=== PATIENT | male | born 1950 | race Caucasian/White ===

== ENCOUNTER 2019-12-19 13:17 | Outpatient (REF) | payer MEDICARE, OTHER, SELFPAY ==
[2019-12-19 21:57] LABS: Hemoglobin A1C 5.4 % (3.8-5.6)
[2019-12-19 22:02] LABS: ALT 33 U/L (16-63); AST 21 U/L (15-37); Albumin 4.4 g/dL (3.4-5.0); Alkaline Phosphatase 31 U/L (46-116); Anion Gap 10.5 mmol/L (3-11); BUN 21 mg/dL (7-18); Bilirubin, Total 0.6 mg/dL (0.2-1.0); CO2 24.5 mmol/L (21.0-32.0); CREATININE 1.18 mg/dL (0.70-1.30); Calcium 9.2 mg/dL (8.5-10.1); Calculated LDL 60 mg/dL (<100); Chloride 105 mmol/L (98-107); Cholesterol 170 mg/dL (<200); Glucose 114 mg/dL (74-106); HDL Cholesterol 60 mg/dL (40-60); Potassium 3.8 mmol/L (3.5-5.1); Sodium 140 mmol/L (136-145); Total Protein 7.3 g/dL (6.4-8.2); Triglyceride 252 mg/dL (<150)
[2019-12-19 22:10] LABS: Bilirubin, Direct 0.22 mg/dL (0.00-0.20)
[2019-12-20 17:40] LABS: PSA, Screening 1.3 ng/mL (0.0-4.5)
== END 2019-12-19 13:37 ==
LOC: NCHCN 13:17
PROVIDERS: Visit Provider Nurse Practitioner Family
DX: R73.9 Hyperglycemia, unspecified (principal); I10 Essential (primary) hypertension; E78.5 Hyperlipidemia, unspecified; Z12.5 Encounter for screening for malignant neoplasm of prostate
CPT/HCPCS: 80048; 80061; 80076; 84153; 83036

== ENCOUNTER 2020-12-08 15:59 | Outpatient (REF) | payer MEDICARE, OTHER, SELFPAY ==
[2020-12-08 20:16] LABS: Bacteria Few HPF (Negative); C & S Indicated? C&S Done As Ordered; Casts Negative LPF (Negative); Crystals Few Amorphous HPF (Negative); Epithelial Cells Few HPF (Negative); Mucus Trace (Negative); RBC 20-50 HPF (0-2)
== END 2020-12-08 16:00 | disposition home or self-care (01) ==
LOC: NCHCN 15:59
PROVIDERS: Visit Provider Internal Medicine
DX: R31.29 Other microscopic hematuria; Z87.448 Personal history of other diseases of urinary system
CPT/HCPCS: 81015; 87086

== ENCOUNTER 2020-12-23 18:40 | Outpatient (REF) | payer MEDICARE, OTHER, SELFPAY ==
[2020-12-23 21:07] LABS: HGB 11.4 g/dL (13.5-17.5); MCH 32.9 pg (27.0-33.0); MCHC 33.5 % (32.0-36.0); MPV 10.2 fL (8.0-11.0); Platelet Count 181 10^3/uL (130-400); RBC 3.47 10^6/uL (4.36-5.78); RDW 12.1 % (11.8-14.1); RDW-SD 43.7 fL
[2020-12-23 21:28] LABS: ALT 32 U/L (16-63); AST 26 U/L (15-37); Albumin 4.1 g/dL (3.4-5.0); Alkaline Phosphatase 24 U/L (46-116); BUN 28 mg/dL (7-18); Bilirubin, Total 0.3 mg/dL (0.2-1.0); CREATININE 1.5 mg/dL (0.70-1.30); Calcium 9.5 mg/dL (8.5-10.1); Chloride 107 mmol/L (98-107); Glucose 115 mg/dL (74-106); Potassium 4.5 mmol/L (3.5-5.1); Sodium 142 mmol/L (136-145); Total Protein 7.1 g/dL (6.4-8.2)
== END 2020-12-23 18:41 | disposition home or self-care (01) ==
LOC: NCHCN 18:40
PROVIDERS: Visit Provider Physician Assistant
DX: I10 Essential (primary) hypertension (principal); D64.9 Anemia, unspecified
CPT/HCPCS: 80053; 85027

== ENCOUNTER 2021-01-09 09:36 | Outpatient (REF) | payer MEDICARE, OTHER, SELFPAY ==
[2021-01-09 19:15] LABS: Iron 76 ug/dL (65-175); Total Iron Binding Capacity 465 ug/dL (250-450); Transferrin Sat 16 % (20-55)
[2021-01-09 19:18] LABS: ALT 34 U/L (16-63); AST 22 U/L (15-37); Albumin 4.4 g/dL (3.4-5.0); Alkaline Phosphatase 36 U/L (46-116); Anion Gap 10.7 mmol/L (3-11); BUN 21 mg/dL (7-18); Bilirubin, Total 0.4 mg/dL (0.2-1.0); CO2 25.3 mmol/L (21.0-32.0); CREATININE 1.3 mg/dL (0.70-1.30); Chloride 108 mmol/L (98-107); Estimated GFR 54.73 (mL/min/1.73m2); Ferritin 107 ng/mL (26-388); Glucose 115 mg/dL (74-106); Potassium 4.2 mmol/L (3.5-5.1); Sodium 144 mmol/L (136-145); Total Protein 7.3 g/dL (6.4-8.2)
== END 2021-01-09 09:37 | disposition home or self-care (01) ==
LOC: NCHCN 09:36
PROVIDERS: Referring Provider Internal Medicine; Visit Provider Internal Medicine
DX: D64.9 Anemia, unspecified (principal); N18.31 Chronic kidney disease, stage 3a; R31.21 Asymptomatic microscopic hematuria
CPT/HCPCS: 80053; 82728; 83540; 83550

== ENCOUNTER 2022-01-15 15:10 | Outpatient (REF) | payer MEDICARE, OTHER, SELFPAY ==
[2022-01-15 19:38] LABS: ALT 33 U/L (16-63); AST 32 U/L (15-37); Alkaline Phosphatase 36 U/L (46-116); Anion Gap 10.8 mmol/L (3-11); BUN 26 mg/dL (7-18); Bilirubin, Total 0.4 mg/dL (0.2-1.0); CO2 26.2 mmol/L (21.0-32.0); CREATININE 1.6 mg/dL (0.70-1.30); Calcium 9.6 mg/dL (8.5-10.1); Chloride 105 mmol/L (98-107); Estimated GFR 46.06 (mL/min/1.73m2); Glucose 108 mg/dL (74-106); Potassium 4.1 mmol/L (3.5-5.1); Sodium 142 mmol/L (136-145); Total Protein 7.6 g/dL (6.4-8.2)
[2022-01-15 20:09] LABS: Hemoglobin A1C 5.4 % (<5.7)
[2022-01-18 11:00] LABS: PSA, Screening 1.6 ng/mL (<=6.5)
== END 2022-01-15 15:11 | disposition home or self-care (01) ==
LOC: NCHCN 15:10
PROVIDERS: Visit Provider Physician Assistant
DX: N18.31 Chronic kidney disease, stage 3a (principal); I10 Essential (primary) hypertension; D50.9 Iron deficiency anemia, unspecified; E78.5 Hyperlipidemia, unspecified; N52.9 Male erectile dysfunction, unspecified; Z83.3 Family history of diabetes mellitus
CPT/HCPCS: 80053; 84153; 83036

== ENCOUNTER 2023-01-18 18:41 | Outpatient (REF) | payer MEDICARE, OTHER, SELFPAY ==
[2023-01-18 18:52] LABS: HCT 37.7 % (40.0-50.0); HGB 12.8 g/dL (13.5-17.5); MCH 31.8 pg (27.0-33.0); MCV 94 fL (80-95); MPV 9.7 fL (8.0-11.0); Platelet Count 250 10^3/uL (130-400); RBC 4.03 10^6/uL (4.36-5.78); RDW 12.3 % (11.8-14.1); RDW-SD 42.5 fL; WBC 5.92 10^3/uL (4.4-10.8)
[2023-01-18 19:01] LABS: Hemoglobin A1C 5.4 % (<5.7)
[2023-01-18 19:04] LABS: ALT 35 U/L (16-63); AST 31 U/L (15-37); Albumin 4.3 g/dL (3.4-5.0); Alkaline Phosphatase 38 U/L (46-116); Anion Gap 10.3 mmol/L (3-11); BUN 16 mg/dL (7-18); Bilirubin, Total 0.4 mg/dL (0.2-1.0); CO2 25.7 mmol/L (21.0-32.0); CREATININE 1.3 mg/dL (0.70-1.30); Calcium 9.9 mg/dL (8.5-10.1); Chloride 105 mmol/L (98-107); Estimated GFR 58.73 (mL/min/1.73m2); Glucose 148 mg/dL (74-106); Potassium 4.1 mmol/L (3.5-5.1); Sodium 141 mmol/L (136-145); Total Protein 7.9 g/dL (6.4-8.2)
== END 2023-01-18 18:42 | disposition home or self-care (01) ==
LOC: NCHCN 18:41
PROVIDERS: Visit Provider Physician Assistant
DX: I10 Essential (primary) hypertension (principal); E78.5 Hyperlipidemia, unspecified; N18.31 Chronic kidney disease, stage 3a; Z83.3 Family history of diabetes mellitus; R73.09 Other abnormal glucose
CPT/HCPCS: 80053; 85027; 83036

== ENCOUNTER 2024-01-24 13:46 | Outpatient (REF) | payer MEDICARE, OTHER, SELFPAY ==
[2024-01-24 19:30] LABS: Abs Immature Grans 0.02 10^3/uL (0.0-0.06); Absolute Basophil Count 0.06 10^3/uL (0.0-0.2); Absolute Lymphocyte Count 1.61 10^3/uL (1.2-3.4); Absolute Monocyte Count 0.52 10^3/uL (0.1-0.8); Absolute Neutrophil Count 3.11 10^3/uL (1.2-6.7); HCT 36.5 % (40.0-50.0); HGB 12.4 g/dL (13.5-17.5); Immature Grans % 0.3 %; Lymphocytes % 28.1 %; MCV 94 fL (80-95); MPV 9.6 fL (8.0-11.0); Monocytes % 9.1 %; Neutrophils % 54.5 %; Platelet Count 259 10^3/uL (130-400); RBC 3.87 10^6/uL (4.36-5.78); RDW-SD 44.3 fL; WBC 5.72 10^3/uL (4.4-10.8)
[2024-01-24 19:44] LABS: ALT 28 U/L (16-63); AST 28 U/L (15-37); Albumin 4.2 g/dL (3.4-5.0); Alkaline Phosphatase 39 U/L (46-116); BUN 20 mg/dL (7-18); Bilirubin, Total 0.47 mg/dL (0.2-1.0); CREATININE 1.2 mg/dL (0.70-1.30); Calcium 9.6 mg/dL (8.5-10.1); Calculated LDL 60 mg/dL (<100); Chloride 104 mmol/L (98-107); Cholesterol 159 mg/dL (<200); Estimated GFR 64.25 (mL/min/1.73m2); Glucose 105 mg/dL (74-106); HDL Cholesterol 71 mg/dL (40-60); Potassium 4.2 mmol/L (3.5-5.1); Sodium 141 mmol/L (136-145); Total Protein 7.8 g/dL (6.4-8.2); Triglyceride 140 mg/dL (<150)
[2024-01-24 20:21] LABS: Hemoglobin A1C 5.6 % (<5.7)
[2024-01-25 19:28] LABS: PSA, Screening 1.9 ng/mL (<=6.5)
[2024-01-26 10:54] LABS: Hepatitis C Ab w Rflx HCV PCR Negative (Negative)
== END 2024-01-24 13:47 | disposition home or self-care (01) ==
LOC: NCHCN 13:46
PROVIDERS: Visit Provider Physician Assistant
DX: E78.5 Hyperlipidemia, unspecified (principal); Z12.5 Encounter for screening for malignant neoplasm of prostate; Z11.59 Encounter for screening for other viral diseases; Z83.3 Family history of diabetes mellitus
CPT/HCPCS: 80053; 80061; 84153; 86803; 83036; 85025

== ENCOUNTER 2024-02-06 01:19 | Outpatient (CLI) | payer MEDICARE, OTHER, SELFPAY ==
--- NOTE | 2024-02-06 | DI.US_ITS ---
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 The left common iliac artery is at the upper limits of normal in size. IMPRESSION: No evidence of abdominal aortic aneurysm. DATA REPOSITORY:
== END 2024-02-06 01:39 ==
LOC: DI 01:20
PROVIDERS: Visit Provider Physician Assistant
DX: Z13.6 Encounter for screening for cardiovascular disorders (principal); Z87.891 Personal history of nicotine dependence
CPT/HCPCS: 76706

== ENCOUNTER → 2024-04-05 14:12 | Outpatient (BNVA) | payer MEDICARE, OTHER, SELFPAY | PROVIDERS: Visit Provider Physical Therapy Assistant | DX: Z12.11 Encounter for screening for malignant neoplasm of colon (principal); Z86.0100 Personal history of colon polyps, unspecified ==

== ENCOUNTER → 2024-09-05 08:51 | Outpatient (BNVA) | payer MEDICARE, OTHER, SELFPAY | PROVIDERS: PCP Physician Assistant; Referring Provider Physician Assistant; Visit Provider Physical Therapy Assistant | DX: Z12.11 Encounter for screening for malignant neoplasm of colon (principal); Z86.0101 Personal history of adenomatous and serrated colon polyps; Z86.0109 Personal history of other colon polyps | CPT/HCPCS: S0285 ==

== ENCOUNTER 2024-10-01 05:59 | Day surgery (SDC) | payer MEDICARE, OTHER, SELFPAY ==
--- NOTE | 2024-09-30 09:22 | W.PM.DSUDISC ---
Date of service: 10/01/24 Discharge Plan Disposition Patient Disposition: Home Condition: Good Discharge Details Reason For Visit: screening colonoscopy Attending Provider: Juan Lagos Primary Care Provider: Nati Waller Home Meds and New Rx's Prescriptions: Continued amlodipine 10 mg tablet 10 mg PO DAILY fenofibrate nanocrystallized 145 mg tablet 145 mg PO DAILY sildenafil [Viagra] 100 mg tablet 100 mg PO DAILY PRN Rx Instructions: administer 30 minutes to 4 hours before activity losartan-hydrochlorothiazide 100-25 mg tablet 1 tab PO DAILY simvastatin 20 mg tablet 20 mg PO QHS esomeprazole magnesium [Nexium] 20 mg capsule,delayed release(DR/EC) 20 mg PO DAILY PRN Discontinued polyethylene glycol 3350 17 gram/dose powder 238 g PO ONCE Qty: 238 0RF Rx Instructions: take per colonoscopy instructions bisacodyl [Dulcolax (bisacodyl)] 5 mg tablet,delayed release (DR/EC) 5 mg PO ONCE Qty: 4 0RF Rx Instructions: take per colonoscopy instructions Discharge Instructions Instructions: Colon polyps, Diverticulosis Additional Instructions: Isaac, I enjoyed meeting you today, and hope you feel well after the procedure. As am sure you recall, things went very smoothly. I did find to remove 3 polyps today. 1 of these was quite small, the other 2 were medium in size. None of them have any particularly worrisome features as evident to the naked eye, but I will be sure to have the pathologist review these. Those results take about a week or 2, but once my office has those, we will be in touch with recommendations for future colonoscopies. If you need anything else, please do not hesitate to call or ask at any time. 1. If tolerated, consume a soft, low fiber diet for 1-2 days. 2[address] Do not drive, drink alcohol, operate machinery, make critical decisions, or do activities that require coordination or balance for 24 hours. 3. Because air was put into your colon during the procedure, expelling air from your rectum (passing gas or farting) is normal. 4. You may not have a bowel movement for 1-3 days because of the colonoscopy prep. This is normal. 5. Go directly to the emergency room if you notice any of the following: Develop chills (warm to touch), or if you have a thermometer and your temperature is above 101 Difficulty breathing or difficultly swallowing Persistent vomiting Severe abdominal pain, other than gas cramps Severe chest pain Black, tarry stools Any bleeding ? exceeding one tablespoon 6. Call your physician if the site where your intravenous was started becomes red, swollen, painful, and warm to touch. 7. Your physician has reviewed your pre-procedure medications. Please continue to take those medications as previously ordered. You will be given specific information/education regarding any changes to your medications before leaving. Activity:: Activity as Tolerated Diet:: As Tolerated Discharge Orders Discharge Orders: Discharge Order (Routine); Ordered 09/30/24 Ordered By: Juan Lagos DS: Diagnosis Discharge Diagnosis (1) Encounter for screening colonoscopy: Status: Acute Asessment and Plan: Follow-up on polypectomy results
--- NOTE | 2024-09-30 09:24 | COLE_ITS ---
Date of service: 10/01/24 Time of Service: 08:01 Colonoscopy Report Date of procedure: 10/01/24 Pre-op diagnosis general: screening colonoscopy Post-op diagnosis procedure note: other (Colon polyps, diverticulosis) Procedure: colonoscopy Surgeon: Juan Lagos Anesthesia Type: General:No Airway Estimated blood loss (mL): 5 Complications: None Disposition: same day Indications: Wm is a 74 year old man with a history tubulovillous adenoma. He needs his next screening colonoscopy Prep: Miralax/Dulcolax Procedure Start Time: 07:31 Procedure End Time: 07:53 Retraction Time: 17 Findings: Pandiverticulosis, 0.5 cm pedunculated cecal polyp, 0.5 cm pedunculated polyp at 70 cm, 0.25 cm flat polyp at 40 cm Procedure Description: After the initiation of conscious sedation, and with the patient in left lateral decubitus position, I began by performing an external anorectal exam.? Perineum and skin were normal, as was the anal verge.? There was no evidence of external hemorrhoids.? Next, I performed a digital rectal exam.? I did not appreciate any abnormal findings.? Next, I advanced a colonoscope into the rectal vault.? I performed retroflexion.? This appeared normal.? Using irrigation, I then advanced the colonoscope beyond the rectal folds and into the sigmoid colon before advancing towards the cecum.? There is diverticulosis affecting all segments of the colon, although they are most heavily concentrated in the sigmoid. The scope was noted to be in the cecum by identification of the ileocecal valve and appendiceal orifice.? Within the cecum was a 0.5 cm pedunculated polyp. This was removed with cold snare polypectomy. There was mi nimal bleeding. I then began withdrawing the colonoscope using repeated irrigation as necessary for full evaluation of the colonic mucosa. Around 70 cm from the anal verge was another polyp. This was also about 0.5 cm and pedunculated. This was also removed with cold snare polypectomy without issues. A 0.25 cm flat polyp was found just at 40 cm from the anal verge. This was removed in piecemeal with cold forceps. Once the scope was withdrawn to the level of the rectum, great care was taken to examine portions of the rectal folds.? Finally, the scope was withdrawn and the patient was brought to the same-day surgery recovery unit as the anesthetic wore off. ?The findings and instructions were shared with the patient prior to discharge. [place] Bowel Prep [place] Bowel Prep Right Colon: 2 Left Colon: 3 Transverse Colon: 2 Total Score: 7
[2024-10-01 06:39] VITALS: BP 139/68; PULSE 67; RESP 20; TEMP 37; O2SAT 97
[2024-10-01] MEDS: Lactated Ringers 1,000 ML 80 ML IV (06:50)
--- NOTE | 2024-10-01 07:00 | W.ANESPRE ---
General Info Date of Service Date Performed: 10/01/24 Height: 5 ft 9 in Weight: 110 kg Body Mass Index (BMI): 35.8 Surgical Procedure: Operation Date: 10/01/24 07:35 Proposed Procedure Side Surgeon p Colonoscopy Juan Lagos MD Meds Allergies and Home Medications Allergies Allergy/AdvReac Type Severity Reaction Status Date / Time No Known Allergies Allergy Verified 10/01/24 06:32 Home Medication ?Medication ?Instructions ?Recorded amlodipine 10 mg tablet 10 mg PO DAILY 12/15/20 fenofibrate nanocrystallized 145 145 mg PO DAILY 12/15/20 mg tablet losartan 100 1 tab PO DAILY 12/15/20 mg-hydrochlorothiazide 25 mg tablet sildenafil 100 mg tablet (Viagra) 100 mg PO DAILY PRN 12/15/20 simvastatin 20 mg tablet 20 mg PO QHS 12/15/20 esomeprazole magnesium 20 mg 20 mg PO DAILY PRN 03/21/24 capsule,delayed release (Nexium) Current Visit Medications: Current Medications Generic Name Dose Route Start Last Admin Trade Name Freq PRN Reason Stop Dose Admin Ringer's Solution 1,000 mls @ 80 mls/hr 10/01/24 06:00 10/01/24 06:50 IV 10/01/24 23:59 80 mls/hr INFUSION TG Administration IV Miscellaneous Supplies 1 each 10/01/24 06:00 Iv Access IV 10/01/24 23:59 DIRECTED TG Ondansetron HCl 4 mg 09/30/24 09:28 Ondansetron 4 Mg/2 Ml Vial IVP 10/30/24 09:27 Q4H PRN PRN Nausea / Vomiting Sodium Chloride 0 ml 10/01/24 06:00 Normal Saline Flush 10 Ml Syr IV 10/01/24 23:59 PRN PRN Sodium Chloride 0 ml 10/01/24 06:00 Normal Saline 10 Ml Vial IJ 10/01/24 23:59 DIRECTED PRN Sterile Water 0 ml 10/01/24 06:00 Water,Injection,Sterile 10 Ml Vial IJ 10/01/24 23:59 DIRECTED PRN PFSH Active Problems Active Problems: Problem Status Onset Code Encounter for screening colonoscopy Acute Z12.11 Chronic kidney disease, stage 3a Acute N18.31 Medical History Medical History Tubulovillous adenoma (~05/21/20) Tubular adenoma (~2020) Disorder of kidney and ureter, unspecified Essential hypertension Anemia Actinic keratosis HTN (hypertension) HLD (hyperlipidemia) Cataract Erectile dysfunction Tubulovillous adenoma of colon Microscopic hematuria Surgical History Surgical History History of colonoscopy with polypectomy (~05/21/20) Tobacco Smoking/Tobacco Use Status: Never Alcohol Alcohol Intake: current Alcohol intake frequency: 0-2 drinks per day Substance Use Substance use type: does not use Vital Signs and Lab Results Vital Signs Most Recent Vital Signs in EMR: Most Recent Vital Signs Temp Pulse Resp BP Pulse Ox 37.0 C 67 20 139/68 97 10/01/24 06:39 10/01/24 06:39 10/01/24 06:39 10/01/24 06:39 10/01/24 06:39 Lab Results Blood Type / Crossmatch: No Data to Display Complete Blood Count: No Data to Display Complete Metabolic Panel: No Data to Display Liver Function Panel: No Data to Display Coagulation Panel: No Data to Display Cardiac Panel: No Data to Display Arterial Blood Gas: No Data to Display Venous Blood Gas: No Data to Display Pancreas Panel: No Data to Display Thyroid Panel: No Data to Display Infectious Disease: No Data to Display Blood Cultures: No Data to Display Toxicology Panel: No Data to Display Anesthesia Assessment and Plan Anesthesia History Personal History: No History of Anesthesia Complications Family History: No Family History of Anesthesia Complications Exercise Tolerance Exercise Tolerance: Metabolic Equivalents>4 Pertinent Negatives Pertinent Negatives: No Major Cardiovascular Symptoms or Complaints, No Major Pulmonary Symptoms or Complaints and No History of CVA/TIA Cardiac & Pulmonary Exam Cardiac Exam: Normal S1/S2 Heart Sounds Pulmonary Exam: Clear Bilateral Breath Sounds Implantable Cardiac Device Does patient have a Pacemaker or an ICD?: No Airway Exam Known Difficult Airway: No Mallampati Class: 3 Mouth Opening: Normal (> 3cm) Thyromental Distance: Greater than 3 cm Neck Range of Motion: Full ROM Neck Circumference: Normal Teeth Condition: Normal Dentition ASA Classification ASA Score: ASA 2 Emergency Case?: No NPO Status NPO Status: NPO Clears >2 hours, Solids >8 hours Anesthesia Plan Resuscitation Status: Full Code Anesthesia Technique: General Anesthesia Airway Planned: Natural Airway Monitors Used: Standard Monitors Preoperative Comments:: Did not take Nexium today, feels gassy and concerned for reflux. Pepcid IV given at 0717 in DSU.
[2024-10-01 07:07] VITALS: BMI 35.8
--- NOTE | 2024-10-01 07:37 | BOWEL_PTH ---
PATIENT: Wm Whitmore LOC: [facility] U#:[id number] AGE/SX: 74/M ROOM: RE10/01/[address]: Juan Lagos MD : 1950 BED: DIS: 10/01/2024 SPEC #: [id number] RECD: 10/01/24 12:54 STATUS: GARY REQ #: [id number] BHARTI: 10/01/24 07:[address]: Juan Lagos DEPT: Surgical Specimen RECD BY: Donna Coello ENTERED: 10/01/24 12:59 SP TYPE: Bowel OTHR DR: Nati Waller Tissues: 1 - BIOPSY BOWEL 2 - BIOPSY BOWEL 3 - BIOPSY BOWEL Procedures: GROSS AND MICRO LEVEL 4 Comments: [id number]
[2024-10-01 07:58] VITALS: BP 130/71; PULSE 66; RESP 16; TEMP 36.7; O2SAT 96
[2024-10-01 08:25] VITALS: BP 133/72; PULSE 58; RESP 16; TEMP 36.3; O2SAT 95
--- NOTE | 2024-10-01 08:27 | W.ANESPOSTOP ---
Postoperative Evaluation Date, Time and Location Date Performed: 10/01/24 Time Performed: 08:02 Patient Location: Day Surgery Unit Vital Signs Most Recent Imported Vital Signs: Most Recent Vital Signs Temp Pulse Resp BP Pulse Ox 36.3 C L 58 L 16 133/72 95 10/01/24 08:25 10/01/24 08:25 10/01/24 08:25 10/01/24 08:25 10/01/24 08:25 Pain Score Most Recent Pain Score: Most Recent Pain Score Pain Level 0 10/01/24 08:25 Assessment Mental Status: Awake (Alert & Oriented to Patient Baseline) Airway and Respiratory Function: Patent airway with normal (patient baseline) respiratory exam Cardiovascular Function: Hemodynamically Stable Hydration Status: Adequately Hydrated Nausea & Vomiting: No Nausea or Vomiting Pain: Pt. Denies Any Pain Peripheral Nerve Block: Patient did not receive a nerve block
== END 2024-10-01 08:38 | disposition home or self-care (01) ==
LOC: SUR 06:00
PROVIDERS: PCP Physician Assistant; Visit Provider Surgery
PROC: 0DJD8ZZ Inspection of Lower Intestinal Tract, Via Natural or Artificial Opening Endoscopic (ICD-10-PCS; CPT 45378; principal; 2024-10-01 07:30)
DX: Z12.11 Encounter for screening for malignant neoplasm of colon (principal); K57.30 Diverticulosis of large intestine without perforation or abscess without bleeding; D12.0 Benign neoplasm of cecum; D12.5 Benign neoplasm of sigmoid colon; D12.4 Benign neoplasm of descending colon
CPT/HCPCS: 45385; 45380; 88305; J2250; J2704; J3010

== ENCOUNTER 2024-11-23 12:35 | Emergency (ER) | payer MEDICARE, OTHER, SELFPAY ==
[2024-11-23 12:36] VITALS: BP 165/77; PULSE 76; RESP 14; TEMP 36.6; O2SAT 96
[2024-11-23 12:52] VITALS: BP 165/77; PULSE 76; RESP 14; TEMP 36.6; O2SAT 96
--- NOTE | 2024-11-23 13:57 | W.ED.GENAD ---
Discharge Plan Disposition Patient Disposition: Home Condition: Stable Discharge Details Clinical Impression: Exposure to bat without known bite, Rabies vaccine administered Primary Care Provider: Nati Waller ED Provider: Cesar Ashton Home Meds and New Rx's Prescriptions: Continued amlodipine 10 mg tablet 10 mg PO DAILY fenofibrate nanocrystallized 145 mg tablet 145 mg PO DAILY sildenafil [Viagra] 100 mg tablet 100 mg PO DAILY PRN Rx Instructions: administer 30 minutes to 4 hours before activity losartan-hydrochlorothiazide 100-25 mg tablet 1 tab PO DAILY simvastatin 20 mg tablet 20 mg PO QHS esomeprazole magnesium [Nexium] 20 mg capsule,delayed release(DR/EC) 20 mg PO DAILY PRN Discharge Instructions Instructions: Animal Bites ED, Rabies Vaccine CDC Vaccine Information Statement (VIS) Additional Instructions: You were given initial dose of rabies vaccine today. Your next dose is on 11/26 and then 11/30 and then 12/07. Please follow-up with your primary care physician. Return to the emergency department immediately for any worsening or new concerning symptoms. Referrals: Nati Waller [Primary Care Provider, Medicine] HPI General Mode of arrival: ambulatory. Date/Time Provider Initiated Documentation: 11/23/24 13:57. Limitations to Documentation: no limitations. Information obtained by: patient. HPI Narrative: 74-year-old male presents with concern for exposure to a bat while he was sleeping. He notes he woke up and there was a bat in his bedroom. He sleeps with his shirt off and sleeps fairly deeply. He is not sure if he was scratched or bitten by the bat. This occurred Tuesday tricot knitter. He has no symptoms. Related Data Home Medications ?Medication ?Instructions ?Recorded ?Confirmed amlodipine 10 mg tablet 10 mg PO DAILY 12/15/20 11/23/24 fenofibrate nanocrystallized 145 145 mg PO DAILY 12/15/20 11/23/24 mg tablet losartan 100 1 tab PO DAILY 12/15/20 11/23/24 mg-hydrochlorothiazide 25 mg tablet sildenafil 100 mg tablet (Viagra) 100 mg PO DAILY PRN 12/15/20 11/23/24 simvastatin 20 mg tablet 20 mg PO QHS 12/15/20 11/23/24 esomeprazole magnesium 20 mg 20 mg PO DAILY PRN 03/21/24 11/23/24 capsule,delayed release (Nexium) Allergies Allergy/AdvReac Type Severity Reaction Status Date / Time No Known Allergies Allergy Verified 11/23/24 12:40 General Stated Complaint: AnimalBite ZACEHRY: 4 Review of Systems All systems reviewed & are unremarkable except as noted in HPI and below Constitutional Constitutional: Denies fever(s) Exam Const General: cooperative and no acute distress HENMT Mouth: moist mucous membranes Eyes Conjunctivae: normal conjunctivae Sclera: normal sclerae Resp Auscultation: clear to auscultation bilaterally, no rales, no rhonchi and no wheezes Cardio Rate: regular rate and not tachycardic Rhythm: regular rhythm Skin Other: 2 superficial scratches right lower back Neuro General: patient alert, patient awake and tone normal Course Vital Signs Vital signs: Vital Signs Temperature 36.6 C 11/23/24 12:36 Pulse 76 11/23/24 12:36 Respiratory Rate 14 11/23/24 12:36 Blood Pressure 165/77 H 11/23/24 12:36 Pulse Oximetry 96 11/23/24 12:36 Temperature 36.6 C 11/23/24 12:52 Temperature Source Oral 11/23/24 12:52 Pulse 76 11/23/24 12:52 Respiratory Rate 14 11/23/24 12:52 Blood Pressure 165/77 H 11/23/24 12:52 Pulse Oximetry 96 11/23/24 12:52 Oxygen Delivery Method Room Air 11/23/24 12:52 Oxygen Flow Rate 0 11/23/24 12:52 Pain Level 0 11/23/24 12:52 Medical Decision Making 74-year-old male here after finding a bat in his bedroom. Direct contact may have occurred and patient is unable to rule out bite or scratch. He does have superficial scratch to his right lower back of unclear etiology. Bat is not available for testing. Plan for postexposure prophylaxis. I will inject immunoglobulin at potential site of exposure on his back and provide initial dose of vaccine. Patient is immunocompetent. Plan to schedule additional vaccine dosing on day 3, 7 and 14. LET applied to low back prior to immunoglobulin injection. Counseled patient on need for tetanus vaccination. He believes he is up-to-date but will check with previous provider. Usual customary discharge instructions were reviewed with the patient. PFSH All Active Problems Rabies vaccine administered (Acute) Exposure to bat without known bite (Acute) Chronic kidney disease, stage 3a (Acute) Medical History Tubulovillous adenoma (~05/21/20) Tubular adenoma (~2020) Disorder of kidney and ureter, unspecified Essential hypertension Anemia Actinic keratosis HTN (hypertension) HLD (hyperlipidemia) Cataract Erectile dysfunction Tubulovillous adenoma of colon Microscopic hematuria Surgical History History of colonoscopy (~09/2024) History of colonoscopy with polypectomy (~05/21/20) Social History Smoking/Tobacco Use Status: Never Smoking risk assessment performed?: Yes Alcohol Intake: current Alcohol Intake frequency: 0-2 drinks per day Drug use: Never Substance use type: does not use Housing: house Do you feel safe at home: Yes Do you feel safe in your relationship?: Yes
[2024-11-23] MEDS: Rabies vaccine (PCEC)/PF 2.5 UNITS/ML VIAL IM (14:56)
[2024-11-23] MEDS: Rabies Immune Globulin 300 UNIT/ML VIAL 600 UNIT IM (14:56)
[2024-11-23] MEDS: Lidocaine/Epinephri/Tetracaine Topical Gel 3 ML TP (14:56)
[2024-11-23] MEDS: Rabies Immune Globulin 1,500 UNIT/5 ML VIAL 1500 UNITS IM (14:56)
== END 2024-11-23 14:55 | disposition home or self-care (01) ==
PROVIDERS: Emergency Provider Student in an Organized Health Care Education/Training Program; PCP Physician Assistant
DX: Z20.3 Contact with and (suspected) exposure to rabies (principal); Z29.14 Encounter for prophylactic rabies immune globulin; Z23 Encounter for immunization
CPT/HCPCS: 99283; 99284; 90471; 90472; 90375; 90675

== ENCOUNTER 2024-12-07 00:29 | Outpatient (RCR) | payer MEDICARE, OTHER, SELFPAY ==
[2024-11-26] MEDS: Rabies vaccine (PCEC)/PF 2.5 UNITS/ML VIAL IM (13:04)
[2024-11-30] MEDS: Rabies vaccine (PCEC)/PF 2.5 UNITS/ML VIAL IM (13:00)
[2024-12-07] MEDS: Rabies vaccine (PCEC)/PF 2.5 UNITS/ML VIAL IM (13:03)
== END 2024-12-23 23:59 | disposition home or self-care (01) ==
LOC: INF 00:29
PROVIDERS: PCP Physician Assistant; Visit Provider Student in an Organized Health Care Education/Training Program
DX: Z20.3 Contact with and (suspected) exposure to rabies (principal); Z29.14 Encounter for prophylactic rabies immune globulin
CPT/HCPCS: 90471; 90675

== ENCOUNTER 2025-01-24 11:55 | Outpatient (REF) | payer MEDICARE, OTHER, SELFPAY ==
[2025-01-24 18:53] LABS: HCT 36.8 % (40.0-50.0); HGB 12.3 g/dL (13.5-17.5); MCH 31.8 pg (27.0-33.0); MCHC 33.4 % (32.0-36.0); MCV 95 fL (80-95); MPV 9.7 fL (8.0-11.0); Platelet Count 251 10^3/uL (130-400); RBC 3.87 10^6/uL (4.36-5.78); RDW 12.9 % (11.8-14.1); RDW-SD 44.1 fL; WBC 6.21 10^3/uL (4.4-10.8)
[2025-01-24 19:08] LABS: ALT 27 U/L (16-63); AST 25 U/L (15-37); Albumin 4.3 g/dL (3.4-5.0); Alkaline Phosphatase 37 U/L (46-116); Anion Gap 12.0 mmol/L (3-11); BUN 21 mg/dL (7-18); Bilirubin, Total 0.5 mg/dL (0.2-1.0); CO2 26.0 mmol/L (21.0-32.0); Calcium 9.3 mg/dL (8.5-10.1); Chloride 104 mmol/L (98-107); Estimated GFR 58.01 (mL/min/1.73m2); Glucose 120 mg/dL (74-106); Hemoglobin A1C 5.4 % (<5.7); LDL CHOLESTEROL 74 mg/dL (<100); Potassium 4.2 mmol/L (3.5-5.1); Sodium 142 mmol/L (136-145); Total Protein 7.8 g/dL (6.4-8.2)
[2025-01-25 17:57] LABS: PSA, Screening 1.8 ng/mL (<=6.5)
== END 2025-01-24 11:56 | disposition home or self-care (01) ==
LOC: NCHCN 11:55
PROVIDERS: PCP Physician Assistant; Visit Provider Physician Assistant
DX: I10 Essential (primary) hypertension (principal); Z12.5 Encounter for screening for malignant neoplasm of prostate; E78.5 Hyperlipidemia, unspecified; R73.9 Hyperglycemia, unspecified
CPT/HCPCS: 80053; 83721; 84153; 85027; 83036